=== PATIENT | female | born 1980 | race Caucasian/White ===

== ENCOUNTER → 2022-11-27 | Outpatient (CLI) | payer BC ==
[2022-11-27 23:27] LABS: % Iron Saturation 28.33 (12.00-45.00); ALT 22 U/L (8-44); AST 24 U/L (13-35); Albumin 4.6 d/dL (3.8-4.9); Albumin/Globulin Ratio 1.77 Ratio (1.60-3.17); Alkaline Phosphatase 46 U/L (41-126); BUN/Creat Ratio 10.09 Ratio (12.00-20.00); Blood Urea Nitrogen 11.1 mg/dL (9.0-27.0); Calcium 9.3 mg/dL (8.7-10.3); Chloride 105 mmol/L (96-109); Globulin 2.6 d/dL (1.6-3.3); Glucose 90 mg/dL (70-110); Iron 85 UG/DL (50-170); Potassium 4.2 mmol/L (3.5-5.5); Sodium 139 mmol/L (135-145); T4, Free (Free Thyroxine) 1.56 ng/dL (0.80-1.80); Total Bilirubin 0.6 mg/dL (0.3-1.2); Total Iron Binding Capacity 300 UG/DL (228-460); Total Protein 7.2 d/dL (6.2-8.2)
[2022-11-27 23:33] LABS: HGB 14.2 d/dL (12.0-15.0); MCH 29.7 pg (27.0-32.0); MCHC 34.6 d/dL (32.0-37.0); MCV 85.8 FL (80.0-97.0); Mean Platelet Volume 9.9 FL (9.5-12.2); NRBC Per 100 WBC 0 X 10*3/uL (0.00-0.01); Platelet Count 253 X 10*3/uL (140-440); RBC 4.78 X 10*6/uL (4.10-5.20); RDW 12.4 % (11.5-14.5); WBC 6.63 X 10*3/uL (4.50-10.00)
== END | disposition home or self-care (01) ==
LOC: LABWHC1 11:16
PROVIDERS: ATTEND Nurse Practitioner Family
DX: Z00.00 Encounter for general adult medical examination without abnormal findings (principal); I10 Essential (primary) hypertension; L65.9 Nonscarring hair loss, unspecified; E03.9 Hypothyroidism, unspecified; R53.81 Other malaise
CPT/HCPCS: 36415; 80053; 82626; 82728; 83036; 83540; 83550; 84402; 84439; 84443; 85027

== ENCOUNTER → 2024-01-09 | Outpatient (CLI) | payer BC ==
--- NOTE | 2024-01-31 16:34 | US ---
Site ID [facility] Arlin Contreras ID [id number] Age/Gender: 43Y, N/A Order # N/A Procedure US carotid duplex BILAT Date 01/09/2024 4:09:00 PM EXAMINATION TYPE: US carotid duplex BILAT DATE OF EXAM: 01/22/2024 COMPARISON: None, please note PACS Production downtime occurred during the radiologist interpretation of these images with limited priors/reports. CLINICAL INDICATION: 43 year old with history of syncope. TECHNIQUE: Carotid duplex ultrasound examination. Indirect Doppler criteria was utilized. FINDINGS: EXAM MEASUREMENTS: RIGHT: Peak Systolic Velocity (PSV) cm/sec ----- Right CCA: 123 ----- Right ICA: 122 ----- Right ECA: 111 ICA/CCA ratio: 1.2 RIGHT: End Diastole cm/sec ----- Right CCA: 24 ----- Right ICA: 37 ----- Right ECA: 15 LEFT: Peak Systolic Velocity (PSV) cm/sec ----- Left CCA: 128 ----- Left ICA: 107 ----- Left ECA: 101 ICA/CCA ratio: 0.9 LEFT: End Diastole cm/sec ----- Left CCA: 30 ----- Left ICA: 44 ----- Left ECA: 16 VERTEBRALS (direction of flow): Right Vertebral: Antegrade Left Vertebral: Antegrade [employer] NOTES: No significant stenosis visualized. IMPRESSION: No ultrasound evidence for hemodynamically significant stenosis of the bilateral visualized carotid a rterial systems. Criteria for Assigning % of Stenosis / Diameter reduction (Estimation based on the indirect measurements of the internal carotid artery velocities (ICA PSV). 1. Normal (no stenosis)=ICA PSV < 125 cm/s: ratio < 2.0: ICA EDV<40 cm/s. 2. Less than 50% stenosis=ICA PSV < 125 cm/s: ratio < 2.0: ICA EDV<40 cm/s. 3. 50 to 69% stenosis=ICA PSV of 125 to 230 cm/s: ration 2.0 ? 4.0: ICA EDV 40-100 cm/s. 4. Greater than 70% stenosis to near occlusion= ICA PSV > 230 cm/s: ratio > 4.0: ICA EDV > 100 cm/s. 5. Near occlusion= ICA PSV velocities may be low or undetectable: variable ratio and ICA EDV. 6. Total occlusion=unable to detect flow.
--- NOTE | 2024-02-06 17:15 | CT ---
Patient Arlin Fitzgerald M ID [id number] 1980 Age 43 years Gender F Order # EXAMINATION TYPE: CT brain wo con DATE OF EXAM: 12/30/2023 COMPARISON: No comparison available on downtime PACS. INDICATION: Syncope DLP: 1041.7 mGycm, Automated exposure control for dose reduction was used. CONTRAST: None CT of the brain is performed utilizing 3 mm thick sections through the posterior fossa and 3 mm thick sections through the remaining calvarium. Study is performed within 24 hours of arrival to the [facility]. No abnormal hyperdensity is present to suggest an acute intracranial hemorrhage. No mass lesion is evident. No acute infarcts are evident. Ventricles and sulci are appropriate for the patient age. Small retention cyst within the inferior right maxillary sinus. Remaining paranasal sinuses and masto id air cells are clear. IMPRESSION: 1. No acute intracranial process. Follow up MRI can be performed as clinically indicated.
== END | disposition home or self-care (01) ==
LOC: RADUSWWP 12:00
PROVIDERS: ATTEND Family Medicine
DX: R55 Syncope and collapse
CPT/HCPCS: 70450; 93880